=== PATIENT | male | born 1975 | race African-American/Black ===

== ENCOUNTER 2017-04-20 22:09 | Emergency (ER) | payer OTHER ==
[~2017-04-20] VITALS: Ht 170.2 cm; Wt 63.5 kg
[2017-04-20 23:11] VITALS: BP 120/80
== END 2017-04-21 00:39 | disposition home or self-care (01) ==
LOC: ER 22:09
DX: M21.372 Foot drop, left foot (principal); W18.39XA Other fall on same level, initial encounter; Y93.89 Activity, other specified; Y99.8 Other external cause status; Y92.89 Other specified places as the place of occurrence of the external cause
CPT/HCPCS: 70450

== ENCOUNTER 2018-06-13 13:13 | Emergency (ER) | payer MEDICAID, OTHER ==
[~2018-06-13] VITALS: Ht 170.2 cm; Wt 60.3 kg
[2018-06-13 14:55] VITALS: BP 148/79
[2018-06-13] MEDS: IBUPROFEN 800 MG TAB PO ONE (15:24)
== END 2018-06-13 15:43 | disposition home or self-care (01) ==
LOC: ER 13:22
DX: S00.212A Abrasion of left eyelid and periocular area, initial encounter (principal); S00.81XA Abrasion of other part of head, initial encounter; W19.XXXA Unspecified fall, initial encounter; Y93.01 Activity, walking, marching and hiking; Y92.89 Other specified places as the place of occurrence of the external cause; Y99.8 Other external cause status